=== PATIENT | female | born 1965 | race Caucasian/White ===

== ENCOUNTER 2021-06-28 11:11 | Outpatient (CLI) | payer OTHER | END 2021-06-28 11:27 | disposition home or self-care (01) | LOC: RAD 11:11 | PROVIDERS: ATTEND Surgery | DX: K59.00 Constipation, unspecified (principal) ==

== ENCOUNTER 2022-02-07 09:11 | Outpatient (CLI) | payer OTHER | END 2022-02-07 09:21 | disposition home or self-care (01) | LOC: RX STUDY 09:11 | PROVIDERS: ATTEND Surgery | DX: K59.01 Slow transit constipation (principal) ==